=== PATIENT | male | born 1960 | race Caucasian/White ===

== ENCOUNTER → 2020-07-28 | Outpatient (CLI) | payer OTHER ==
--- NOTE | 2020-07-28 15:34 | RADIOLOGY REPORT (SQ) ---
EXAM DESCRIPTION: CHEST PA/LATERAL IMAGES COMPLETED DATE/TIME: 07/28/2020 2:52 pm REASON FOR STUDY: PRE-OP COMPARISON: None. EXAM PARAMETERS: NUMBER OF VIEWS: two views TECHNIQUE: Digital Frontal and Lateral radiographic views of the chest acquired. RADIATION DOSE: NA LIMITATIONS: none FINDINGS: LUNGS AND PLEURA: No opacities, masses or pneumothorax. No pleural effusion. MEDIASTINUM AND HILAR STRUCTURES: No masses or contour abnormalities. HEART AND VASCULAR STRUCTURES: Heart normal size. No evidence for failure. BONES: No acute findings. HARDWARE: None in the chest. OTHER: No other significant finding. IMPRESSION: NO SIGNIFICANT RADIOGRAPHIC FINDING IN THE CHEST. TECHNICAL DOCUMENTATION: JOB ID: [id number] 2010 [employer]- All Rights Reserved Reading location - IP/workstation name: [email or web address]
[2020-07-28 15:40] LABS: ABSOLUTE EOSINOPHILS # (AUTO) 0.1 10^3/uL (0.0-0.6); ABSOLUTE LYMPHOCYTES (AUTO) 1.4 10^3/uL (0.5-4.7); ABSOLUTE MONOCYTES (AUTO) 0.6 10^3/uL (0.1-1.4); BASOPHILS % (AUTO) 0.7 % (0-2); EOSINOPHILS % (AUTO) 1.1 % (0-6); HEMATOCRIT 42.6 % (37.9-51.0); HEMOGLOBIN 14.7 g/dL (13.5-17.0); LYMPHOCYTES % (AUTO) 23.5 % (13-45); MEAN CORPUSCULAR HEMOGLOBIN 30.6 pg (27.0-33.4); MEAN CORPUSCULAR HGB CONC 34.6 g/dL (32.0-36.0); MEAN CORPUSCULAR VOLUME 89 fl (80-97); MONOCYTES % (AUTO) 9.4 % (3-13); PLATELET COUNT 175 10^3/uL (150-450); RED BLOOD COUNT 4.81 10^6/uL (4.35-5.55); RED CELL DISTRIBUTION WIDTH 13.7 % (11.5-14.0); SEGMENTED NEUTROPHILS % (AUTO) 65.3 % (42-78); TOTAL CELLS COUNTED % (AUTO) 100 %; WHITE BLOOD COUNT 6.1 10^3/uL (4.0-10.5)
[2020-07-28 15:41] LABS: APPEARANCE,URINE CLEAR; BILIRUBIN,URINE NEGATIVE (NEGATIVE); COLOR,URINE YELLOW; GLUCOSE, URINE NEGATIVE (NEGATIVE); KETONES,URINE NEGATIVE (NEGATIVE); LEUKOCYTE ESTERASE,URINE NEGATIVE (NEGATIVE); NITRITE,URINE NEGATIVE (NEGATIVE); PROTEIN,URINE NEGATIVE (NEGATIVE); URINE SPECIFIC GRAVITY 1.021; UROBILINOGEN,URINE NEGATIVE mg/dL (<2.0)
[2020-07-28 16:08] LABS: ALBUMIN 4.8 g/dL (3.5-5.0); ANION GAP 9 (5-19); BLOOD UREA NITROGEN 17 mg/dL (7-20); C-REACTIVE PROTEIN 7.7 mg/L (<10.0); CALCIUM 9.4 mg/dL (8.4-10.2); CARBON DIOXIDE 29 mmol/L (22-30); CHLORIDE 104 mmol/L (98-107); GLUCOSE 143 mg/dL (75-110); POTASSIUM 4.5 mmol/L (3.6-5.0)
[2020-07-28 16:19] LABS: ERYTHROCYTE SEDIMENTATION RATE 8 mm/hr (0-20)
--- NOTE | 2020-07-29 00:57 | EKG REPORT ---
SEVERITY:- BORDERLINE ECG - SINUS RHYTHM BORDERLINE PROLONGED QT INTERVAL : Confirmed by: Chong Trent 29-Jul-2020 00:56:19
== END ==
LOC: OD 14:00
PROVIDERS: ATTEND Orthopaedic Surgery
DX: Z01.810 Encounter for preprocedural cardiovascular examination (principal); Z01.811 Encounter for preprocedural respiratory examination; Z01.812 Encounter for preprocedural laboratory examination
CPT/HCPCS: 36415; 71046; 80048; 81001; 82040; 82306; 83036; 85025; 85652; 86140; 93005; 93010

== ENCOUNTER 2020-08-13 10:05 | Day surgery (SDC) | payer OTHER ==
[~2020-08-13 10:05] MED LIST: ACETAMINOPHEN 325 MG TABLET PO PRN; BUPIVACAINE HCL 0.25 % INJ/PF (2.5 MG/1 ML) 30 ML VIAL ONE; CEFAZOLIN 2 GM/D5W RTU 2 GM/50 ML RTUPB IV PRN; CELECOXIB 200 MG CAPSULE PO PRN; GABAPENTIN 100 MG CAPSULE PO PRN; KETOROLAC TROMETHAMINE INJ/PF 30 MG/1 ML SDV ONE; LACTATED RINGERS 1000 ML IV PRN; LIDOCAINE 0.5% INJ-PF (5 MG/ML) 50 ML SDV SUBCUT PRN; LIDOCAINE 1% INJ-PF (10 MG/ML) 30 ML SDV ONE; OXYCODONE HCL SR 10 MG TABLET PO PRN; SCOPOLAMINE HYDROBROMIDE 1.5 MG PATCH.TD72 TD PRN; TRAMADOL HCL 50 MG TABLET PO PRN; TRANEXAMIC ACID INJ/PF 1,000 MG/10 ML SDV IV PRN; VANCOMYCIN HCL 1,000 MG in DEXTROSE 5%-WATER 250 ML IV PRN; VANCOMYCIN HCL INJ 1000 MG VIAL ONE
[2020-08-13] MEDS ORDERED: ACETAMINOPHEN 325 MG TABLET ONE (10:19)
[2020-08-13] MEDS ORDERED: CELECOXIB 200 MG CAPSULE ONE (10:19)
[2020-08-13] MEDS ORDERED: SCOPOLAMINE HYDROBROMIDE 1.5 MG PATCH.TD72 ONE (10:20)
[2020-08-13] MEDS ORDERED: GABAPENTIN 100 MG CAPSULE ONE (10:20)
[2020-08-13] MEDS ORDERED: TRAMADOL HCL 50 MG TABLET ONE (10:20)
[2020-08-13] MEDS ORDERED: OXYCODONE HCL SR 10 MG TABLET PO ONE (10:20)
[2020-08-13] MEDS ORDERED: CEFAZOLIN 1 GM/D5W RTU 1 GM/50 ML RTUPB IV ONE (10:21)
[2020-08-13] MEDS ORDERED: ONDANSETRON HCL INJ/PF 4 MG/2 ML SDV ONE (10:28)
[2020-08-13] MEDS ORDERED: LIDOCAINE 2% INJ-PF (20 MG/ML) 10 ML AMPUL ONE (10:28)
[2020-08-13] MEDS ORDERED: FENTANYL CITRATE INJ/PF 100 MCG/2 ML AMPUL ONE (10:28)
[2020-08-13] MEDS ORDERED: MIDAZOLAM 2 MG/2 ML INJ ONE (10:28)
[2020-08-13] MEDS ORDERED: PROPOFOL INJ 200 MG/20 ML VIAL IV ONE (10:29)
[2020-08-13] MEDS ORDERED: OXYCODONE HCL IR 5 MG TABLET PO PRN ×4 (10:37)
[2020-08-13] MEDS ORDERED: ZOLPIDEM TARTRATE 5 MG TABLET PO PRN (10:37)
[2020-08-13] MEDS ORDERED: DOCUSATE SODIUM 100 MG CAPSULE PO PRN (10:37)
[2020-08-13] MEDS ORDERED: DIPHENHYDRAMINE HCL 25 MG CAPSULE PO PRN (10:37)
[2020-08-13] MEDS ORDERED: ONDANSETRON 4 MG TAB.RAPDIS PO PRN (10:37)
[2020-08-13] MEDS ORDERED: TRAMADOL HCL 50 MG TABLET PO PRN (10:37)
[2020-08-13] MEDS ORDERED: TRANEXAMIC ACID INJ/PF 1,000 MG/10 ML SDV IV ONE (10:37)
[2020-08-13] MEDS ORDERED: NORMAL SALINE 1000 ML 1,000 ML IV ONE (10:37)
[2020-08-13] MEDS ORDERED: MORPHINE SULFATE 10 MG/ML INJ IV PRN ×2 (10:37)
[2020-08-13] MEDS ORDERED: TRANEXAMIC ACID INJ/PF 1,000 MG/10 ML SDV ONE (10:38)
[2020-08-13] MEDS ORDERED: ALBUTEROL SULFATE HFA (90 MCG/PUFF) 8 GM MDI (1 MDI/ER DISP) IH PRN (10:42)
[2020-08-13] MEDS ORDERED: MONTELUKAST SODIUM 10 MG TABLET PO PRN (10:42)
[2020-08-13] MEDS ORDERED: DEXAMETHASONE SOD PHOS INJ 10 MG/1 ML VIAL IV ONE (11:15)
[2020-08-13] MEDS ORDERED: PANTOPRAZOLE SODIUM 20 MG TABLET.DR PO ONE (11:15)
[2020-08-13] MEDS ORDERED: FENTANYL CITRATE INJ/PF 100 MCG/2 ML AMPUL IV PRN ×3 (11:32)
[2020-08-13] MEDS ORDERED: OXYCODONE-ACETAMINOPHEN 5-325 MG TABLET PO PRN ×2 (11:32)
[2020-08-13] MEDS ORDERED: MEPERIDINE HCL/PF INJ 25 MG/1 ML DISP.SYRIN IV PRN (11:32)
[2020-08-13] MEDS ORDERED: DIPHENHYDRAMINE HCL 50 MG/ML VIAL IV PRN (11:32)
[2020-08-13] MEDS ORDERED: PROMETHAZINE HCL INJ 25 MG/1 ML VIAL IV PRN ×2 (11:32)
[2020-08-13] MEDS ORDERED: ONDANSETRON HCL INJ/PF 4 MG/2 ML SDV IV PRN (11:32)
--- NOTE | 2020-08-13 13:16 | Operative Report ---
Operative Report DATE OF SURGERY: 08/13/20 PREOPERATIVE DIAGNOSIS: Severe right hip primary osteoarthritis POSTOPERATIVE DIAGNOSIS: Severe right hip primary osteoarthritis OPERATION: Right total hip arthroplasty SURGEON: MODESTO KYLE JR ANESTHESIA: Spinal COMPLICATIONS: None ESTIMATED BLOOD LOSS: 200 cc PROCEDURE: Implants: Juany Accolade 2 size 7 femoral stem with 132 offset, a Trident 2 size 58 cup, and a 36 standard liner, a -2.5 neck length 36 mm ceramic head OPERATIVE PROCEDURE: Patient was brought to the operating room on and underwent spinal anesthesia. 2 grams of Ancef and 1 g of vancomycin was given. After proper anesthesia was obtained, patient was positioned, padded, prepped, and draped in the usual sterile fashion on the operating room table. Appropriate time out was performed. An anterior approach to the hip was undertaken with meticulous hemostasis through the deep interval. A capsulectomy was performed f ollowed by exposure of the femoral neck. The femoral neck was cut in line with the femoral broach and the femoral head was removed. The acetabulum was then exposed with three retractors in an atraumatic fashion. Soft tissue and osteophytes were removed. Medialization reaming was performed followed by reaming of the acetabulum. Wound was irrigated with dilute betadyne solution and the 58 mm acetabulum was impacted into correct position and stability checked by manipulating the impaction handle which rocked the pelvis. A standard 36 mm liner was impacted into the shell with good stability. Potential impinging osteophytes were removed. Attention was then directed toward the femur, which was exposed with two retractors in an atraumatic fashion. A bone hook was placed to carefully perfor m releases along the superior capsule until the femur was safely delivered through the wound. A box bender was utilized followed by lateralization rasping and then broaching up to a stable, filled proximal femur. With a 132 offset neck and a -5 head, stability was good in flexion and extension with slightly short leg length on the right. The final size 7 stem was impacted into a copiously irrigated femoral canal. The final size -2.5 head was impacted on a clean dry femoral taper. The hip was irrigated and reduced, further irrigation with antibiotic solution, betadine solution, then antibiotic solution. Bleeders were coagulated with bovie cautery. The fascia was then closed with number 2 barbed PDS; the subcutaneous tissue closed with 2-0 monocryl and then a running 3-0 monocryl subcuticular. A silver dressing was then applied. All needle sponge and instrument counts were correct. Patient was awakened from sedation anesthesia and taken to recovery room in stable condition.
[2020-08-13] MEDS ORDERED: CEFAZOLIN 2 GM/D5W RTU 2 GM/50 ML RTUPB IV SCH (14:00)
--- NOTE | 2020-08-13 14:15 | RADIOLOGY REPORT (SQ) ---
EXAM DESCRIPTION: HIP RIGHT AP/LATERAL IMAGES COMPLETED DATE/TIME: 08/13/2020 1:51 pm REASON FOR STUDY: S/P SURGERY M16.11 UNILATERAL PRIMARY OSTEOARTHRITIS, RIGHT HIP COMPARISON: None. NUMBER OF VIEWS: Two views. TECHNIQUE: AP pelvis and additional frog legview of the right hip. LIMITATIONS: None. FINDINGS: Imaging of the pelvis and right hip show right hip arthroplasty in good position. IMPRESSION: Right hip arthroplasty. Refer to operative note for further information. TECHNICAL DOCUMENTATION: JOB ID: [id number] 2010 [employer]- All Rights Reserved Reading location - IP/workstation name: [email or web address]
--- NOTE | 2020-08-13 14:26 | RADIOLOGY REPORT (SQ) ---
EXAM DESCRIPTION: NO CHG FLUORO; HIP IN OPERATING RM IMAGES COMPLETED DATE/TIME: 08/13/2020 2:18 pm REASON FOR STUDY: RIGHT HIP TOTAL ARTHROPLASTY ASSISTED WITH FLUORO IN OR COMPARISON: None. FLUOROSCOPY TIME: No recordable fluoro time 1 Images saved to PACS LIMITATIONS: None. PROCEDURE: Right hip arthroplasty FINDINGS: An image from fluoro documents the procedure. IMPRESSION: Right hip arthroplasty. Refer to operative note for further information. COMMENT: PQRS 6045F: Fluoroscopy time of the procedure is documented in the report. TECHNICAL DOCUMENTATION: JOB ID: [id number] 2010 [employer]- All Rights Reserved Reading location - IP/workstation name: [email or web address]
--- NOTE | 2020-08-13 14:26 | RADIOLOGY REPORT (SQ) ---
EXAM DESCRIPTION: NO CHG FLUORO; HIP IN OPERATING RM IMAGES COMPLETED DATE/TIME: 08/13/2020 2:18 pm REASON FOR STUDY: RIGHT HIP TOTAL ARTHROPLASTY ASSISTED WITH FLUORO IN OR COMPARISON: None. FLUOROSCOPY TIME: No recordable fluoro time 1 Images saved to PACS LIMITATIONS: None. PROCEDURE: Right hip arthroplasty FINDINGS: An image from fluoro documents the procedure. IMPRESSION: Right hip arthroplasty. Refer to operative note for further information. COMMENT: PQRS 6045F: Fluoroscopy time of the procedure is documented in the report. TECHNICAL DOCUMENTATION: JOB ID: [id number] 2010 [employer]- All Rights Reserved Reading location - IP/workstation name: [email or web address]
[2020-08-13] MEDS: ACETAMINOPHEN 325 MG TABLET PO SCH ×3 (15:29→23:02)
[2020-08-13] MEDS: CEFAZOLIN SODIUM 2 GM in DEXTROSE 5%-WATER 100 ML IV SCH (17:54)
[2020-08-13] MEDS: KETOROLAC TROMETHAMINE INJ/PF 30 MG/1 ML SDV IV SCH (17:56)
[2020-08-13] MEDS ORDERED: ATORVASTATIN CALCIUM 40 MG TABLET PO SCH (22:00)
[2020-08-13] MEDS: GABAPENTIN 100 MG CAPSULE PO SCH (22:30)
[2020-08-14] MEDS: KETOROLAC TROMETHAMINE INJ/PF 30 MG/1 ML SDV IV SCH ×2 (01:00→09:46)
[2020-08-14] MEDS: CEFAZOLIN SODIUM 2 GM in DEXTROSE 5%-WATER 100 ML IV SCH (01:01)
[2020-08-14] MEDS: ACETAMINOPHEN 325 MG TABLET PO SCH (05:01)
[2020-08-14] MEDS ORDERED: INFLUENZA QUAD (6MOS+) 2020-21 VAC 0.5 ML SYR IM ONE (08:00)
--- NOTE | 2020-08-14 09:14 | Discharge Summary ---
Discharge Summary (SDC) - Discharge Final Diagnosis: Right total hip arthroplasty Date of Surgery: 08/13/20 Discharge Date: 08/14/20 Condition: Stable Treatment or Instructions: Full details of postoperative instructions have been provided to the patient in the clinic. Additionally they should maintain their bandage in place for 10 days, and then changed to a dry dressing. They can take showers with this occlusive dressing but any further dressing should also be occlusive. No showers with the wound unprotected until cleared by me in the clinic. If the bandage falls off early or become saturated they can change as needed to another occlusive dressing. Follow-up with Dr. Arcadio Kyle, orthopedic surgeon at [facility] for surgery, in 10 days. Call for an appointment. . [address], [place] [address] Referrals: ARCADIO KYLE JR, DO [ACTIVE PROVISIONAL STAFF] - 08/25/20 9:10 am Discharge Diet: As Tolerated, Diabetic Respiratory Treatments at Home: Deep Breathing/Coughing Discharge Activity: Activity As Tolerated, No Driving, Keep Legs Elevated, No Lifting/Push/Pulling, Slowly Increase Activity, No tub bath, Walk Frequently Home Care Assistance: Home Health Activities Provided by Home Health Agency: Physical Therapy Adaptive Devices on Discharge: Surendra Walker, Bedside Commode Report the Following to Your Physician Immediately: Shortness of Breath, Fever over 101 Degrees, Unusual Bleeding, Drainage-Yellow
[2020-08-14] MEDS: GABAPENTIN 100 MG CAPSULE PO SCH (09:46)
[2020-08-14] MEDS ORDERED: (PENDING PHARMACY ID) (Telmisartan [Telmisartan] 80 MG) PO SCH (10:00)
[2020-08-14] MEDS ORDERED: LOSARTAN POTASSIUM 50 MG TABLET PO SCH (10:00)
[2020-08-14] MEDS ORDERED: METFORMIN HCL 500 MG TABLET PO SCH (10:00)
[2020-08-14] MEDS ORDERED: POLYETHYLENE GLYCOL 3350 POWDER 17 GM/1 PACKET PO SCH (10:00)
[2020-08-14] MEDS ORDERED: TAMSULOSIN HCL 0.4 MG CAP.SR.24H PO SCH (10:00)
[2020-08-14] MEDS ORDERED: ASPIRIN 325 MG TABLET PO SCH (10:00)
[2020-08-14] MEDS ORDERED: (PENDING PHARMACY ID) (Metformin Hcl [Metformin Hcl Er] 500 MG) PO SCH (10:00)
[2020-08-14 11:15] VITALS: BP 125/61
[2020-08-15] MEDS ORDERED: CELECOXIB 200 MG CAPSULE PO SCH (10:00)
== END 2020-08-14 11:30 | disposition home or self-care (01) ==
LOC: OROUT 10:05 → 4N 14:36 → OROUT 08-14 11:30
PROVIDERS: ATTEND Orthopaedic Surgery
DX: M16.11 Unilateral primary osteoarthritis, right hip (principal); J45.909 Unspecified asthma, uncomplicated; E11.9 Type 2 diabetes mellitus without complications; I10 Essential (primary) hypertension; Z03.818 Encounter for observation for suspected exposure to other biological agents ruled out; Z23 Encounter for immunization; Z79.899 Other long term (current) drug therapy; Z79.84 Long term (current) use of oral hypoglycemic drugs
CPT/HCPCS: 86900; 86901; 36415; 86850; 82947; 87635; 73502; 73501; 90686; 97110; 97116; 97162; 97535; 97165; 01214; 27130; C1776 ×4; J2250; J0690 ×3; J3010; J3490 ×5; J1885 ×2; J2405; J7060 ×3; J2704; J3370; C9803; 90471; G0008